=== PATIENT | male | born 1965 | race Hispanic/Latino ===

== ENCOUNTER 2018-11-02 13:40 | Inpatient (IN) | payer MEDICAID ==
--- NOTE | 2018-11-02 14:11 | C.PDOC ---
History Of Present Illness Patient is a 52 year old prescreened male who presents to the ED requesting detox from alcohol and xanax. 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 Patient also admits to cocaine and marijuana use and is currently complaining of symptoms of alcohol withdrawal. Denies any SI/HI, hallucinations, or other medical problems. Patient is requesting Librium. Time Seen by Provider: 11/02/18 14:11 Chief Complaint (Nursing): Substance Abuse History Per: Patient History/Exam Limitations: no limitations Suicide/Self Injury Attempted (Context): None Associated Symptoms: denies: Suicidal Thoughts, Suicidal Plan Recent travel outside of the [place]: No Additional History Per: Patient Past Medical History Reviewed: Historical Data, Nursing Documentation, Vital Signs Vital Signs: Last Vital Signs Temp 98.6 F 11/02/18 13:46 Pulse 86 11/02/18 13:46 Resp 18 11/02/18 13:46 BP 157/100 H 11/02/18 13:46 Pulse Ox 100 11/02/18 13:46 Primary Care Provider: Manuel Noriega - Medical History PMH: Crohn's Disease Denies: Diabetes, Hepatitis, HIV, HTN, Seizures, Sexually Transmitted Disease Surgical History: No Surg Hx - [facility] Procedures DRUG DETOXIFICATION (02/06/15) Family History: States: Unknown Family Hx - Social History Hx Tobacco Use: Yes Hx Alcohol Use: Yes Hx Substance Use: Yes (cocaine/marijuana/xanax) - Immunization History Hx Tetanus Toxoid Vaccination: No Hx Influenza Vaccination: Yes Hx Pneumococcal Vaccination: No Review Of Systems Except As Marked, All Systems Reviewed And Found Negative. Psych: Negative for: Suicidal ideation, Other (HI or hallucinations) Physical Exam - Physical Exam Appears: Non-toxic, No Acute Distress, Other (No tremors ) Skin: Warm, Dry Head: Atraumatic, Normacephalic Oral Mucosa: Moist Neck: Normal ROM, Supple Chest: Symmetrical, No Deformity Cardiovascular: Rhythm Regular, No Murmur Respiratory: Other (NARD) Gastrointestinal/Abdominal: Soft, No Tenderness Neurological/Psych: Oriented x3, Normal Speech, Normal Cognition, Other (No acute intox, calm, cooperative ) ED Course And Treatment - Laboratory Results Result Diagrams: 11/02/18 15:02 11/02/18 15:02 O2 Sat by Pulse Oximetry: 100 (on RA) Pulse Ox Interpretation: Normal Disposition Counseled Patient/Family Regarding: Studies Performed, Diagnosis - Disposition Disposition: HOSPITALIZED Disposition Time: 17:16 Condition: STABLE Forms: [facility] (Bulgarian) - Clinical Impression Clinical Impression: Alcohol abuse - Scribe Statement The provider has reviewed the documentation as recorded by the Silviaibmyke Cazares All medical record entries made by the Scribe were at my direction and personally dictated by me. I have reviewed the chart and agree that the record accurately reflects my personal performance of the history, physical exam, medical decision making, and the department course for this patient. I have also personally directed, reviewed, and agree with the discharge instructions and d isposition.
[2018-11-02 15:16] LABS: URINE BILIRUBIN NEGATIVE (NEGATIVE); URINE BLOOD NEGATIVE (NEGATIVE); URINE CLARITY Clear (Clear); URINE COLOR Colorless (YELLOW); URINE GLUCOSE (UA) NORMAL (Normal); URINE LEUKOCYTE ESTERASE NEG Leu/uL (Negative); URINE PROTEIN NEGATIVE (NEGATIVE); URINE UROBILINOGEN NORMAL mg/dL (0.2-1.0)
[2018-11-02 15:17] LABS: BASO # 0.1 K/uL (0.0-0.2); BASO % 0.7 % (0.0-2.0); EOS # 0.2 K/uL (0.0-0.7); EOS % 2.5 % (0.0-4.0); HEMOGLOBIN 16.5 g/dL (12.0-18.0); LYMPH # 2.3 K/uL (1.0-4.3); LYMPH % 26.8 % (20.0-40.0); MEAN CORPUSCULAR HEMOGLOBIN 32.5 pg (27.0-31.0); MEAN PLATELET VOLUME 8.2 fL (7.2-11.7); MONO # 0.8 K/uL (0.0-0.8); MONO % 9.4 % (0.0-10.0); NEUT # 5.3 K/uL (1.8-7.0); NEUT % 60.6 % (50.0-75.0); NRBC % 0.1 % (0.0-2.0); RBC 5.07 Mil/uL (4.40-5.90); RED CELL DISTRIBUTION WIDTH 13.1 % (11.5-14.5); WHITE BLOOD COUNT 8.7 K/uL (4.8-10.8)
[2018-11-02 15:20] LABS: MEAN CELL VOLUME 92.6 fL (80.0-94.0)
[2018-11-02 15:27] LABS: ALB/GLOB RATIO 1.2 (1.0-2.1); ALBUMIN 4.4 g/dL (3.5-5.0); ALT/SGPT 65 U/L (21-72); AST/SGOT 49 U/L (17-59); BLOOD UREA NITROGEN 9 mg/dL (9-20); CALCIUM 9.7 mg/dl (8.6-10.4); GFR NON-AFRICAN AMERICAN > 60
[2018-11-02 15:54] LABS: BARBITURATES, UR NEGATIVE (NEGATIVE); OPIATES, UR NEGATIVE (NEGATIVE); PHENCYCLIDINE, UR NEGATIVE (NEGATIVE)
[2018-11-02 16:25] LABS: BENZODIAZEPINES, UR POSITIVE (NEGATIVE)
--- NOTE | 2018-11-02 18:06 | PCM.BM ---
Treatment Plan Problems - Problems identified on initial assessmt knowledge deficit:substance use Assessment reference: NA Status: Active anxiety related to substance use Date Initiated: 11/02/18 Time Initiated: 18:05 Assessment reference: NA Status: Active knowledge deficit:alcohol use Date Initiated: 11/02/18 Time Initiated: 18:06 Assessment reference: NA Status: Active Treatment assets and liabiliti Patient Assests: adapts well, educated, ADL independent, cognitively intact Patient Liabilities: substance abuse - Milieu Protocol Maintain good personal hygiene: daily Encourage regular showers, daily Remind patient to perform daily oral care, daily Assist patient to perform ADL's Conduct patient checks and document Observation sheet: Q15 minutes Maintain personal safety: every shift Educate patient to report safety concerns to staff, every shift Monitor environment for contraband/sharps Medication safety: Monitor for expected outcome, potential side effects: every shift, Assess barriers to learning: every shift, Assess readiness for medication education: every shift
[2018-11-02] MEDS ORDERED: Aluminum Hydroxide/Magnesium Hydroxide Susp (30 mL) PO PRN (19:10)
[2018-11-02 21:04] VITALS: RESP 19
[2018-11-03] MEDS ORDERED: Multiple Vitamins Tab PO SCH (10:00)
[2018-11-03 12:51] VITALS: BP 105/68; PULSE 72; TEMP 97.4; O2SAT 96
--- NOTE | 2018-11-03 13:09 | PCM.PSYCH ---
Initial Psychiatric Evaluation - Initial Psychiatric Evaluation Type of Admission: Voluntary Legal Status: Capacity History of Present Illness and Precipitating Events: Patient is a 52 year-old, male, who lives with his girlfriend of 16 years and volunteers part-time as a bar host/hostess at [employer]. He has two children, one boy age 24 and one girl age 23. He presents to [facility] in order to detox from alcohol and benzodiazepines. He admits to drinking a case of beer daily, which typically consists of 24 7oz cans. He started drinking at the age of 20 but began drinking heavily 4 years ago. He stated that he came to detox because his girlfriend noticed that he needed a beer every morning to wake up. His last drink was on the day of admission, Nov 02 2018. Currently CIWA is <8. He also admits to taking 3-6mg of Xanax per day for the past 3 years. He stated that he was prescribed Xanax by his PCP to help manage anxiety, but approximately 3 months ago his UDS came back positive for cocaine and he was no longer able to obtain a prescription. In addition, he admits to using cocaine 3 days ago. He states that he has used cocaine off and on for the past 25 years and typically snorts up to one half gram. He also admits to smoking marijuana, about one joint per day for the past 30 years and has no intention of quitting because he feels that it helps him cope. Patient is a current every day smoker for 40 years, and smokes 1-1.5 packs per day. He denies any opioid use or the use of any other illicit substances except those mentioned above. He has been to multiple detox programs in the past, twice in [place], [place], and most recently at [facility] in 2014. He was last sober 4 years ago during detox and denies any substantial length of sobriety following this treatment. He has been arrested for DUI/DWI twice in his lifetime. He admits to a history of seizures, last episode in 2014. He denies any history of overdose. He is interested in detox in order to contribute more to his family. He feels anxious but denies any depressive symptoms or suicidal ideation. Past Psychiatric History: anxiety Family Psych History: none Past Medical History: brain aneurysm (4 yrs), colitis, COPD (emphysema), low back pain, hyperlipidemia, GERD, vertigo Past Surgical History: lumbar spine disc removal Current Medications: Active Medications Generic Name Dose Route Start Last Admin Trade Name Freq PRN Reason Stop Dose Admin Al Hydrox/Mg Hydrox/Simethicone 30 ml 11/02/18 19:10 Maalox 30 Ml PO TID PRN Indigestion / Heartburn Chlordiazepoxide 25 mg 11/03/18 09:00 Librium PO Q4H PRN Alcohol Withdrawal Chlordiazepoxide 25 mg 11/03/18 10:00 11/03/18 09:44 Librium PO 11/08/18 09:59 25 mg Q6H AKASH Administration Taper Clonidine HCl 0.1 mg 11/02/18 19:05 11/02/18 21:41 Catapres PO 0.1 mg Q4H PRN Administration Symptoms of alcohol withdrawl Folic Acid 1 mg 11/03/18 10:00 11/03/18 09:43 Folic Acid PO 1 mg DAILY AKASH Administration Gabapentin 400 mg 11/03/18 10:00 11/03/18 09:43 Neurontin PO 400 mg TID AKASH Administration Hydroxyzine HCl 50 mg 11/02/18 19:11 11/02/18 21:40 Atarax PO 50 mg Q6H PRN Administration Anxiety Multivitamins 1 tab 11/03/18 10:00 11/03/18 09:42 Hexavitamin PO 1 tab DAILY AKASH Administration Nicotine 1 patch 11/03/18 10:00 11/03/18 09:46 Nicoderm Cq TD 1 patch DAILY AKASH Administration Ondansetron HCl 4 mg 11/02/18 19:10 Zofran Tab PO Q8 PRN Nausea/Vomiting Thiamine HCl 100 mg 11/03/18 10:00 11/03/18 09:43 Vitamin B1 Tab PO 100 mg DAILY AKASH Administration Trazodone HCl 50 mg 11/02/18 19:05 11/02/18 21:40 Desyrel PO 50 mg HS PRN Administration Insomnia Past Psychiatric History - Past Psychiatric History Pertinent Medical Hx (Current Medical&Sleep Prob, Allergies): Allergies Allergy/AdvReac Type Severity Reaction Status Date / Time No Known Allergies Allergy Verified 02/06/15 14:58 Gabapentin [Neurontin] 400 mg PO TID #0 cap 02/11/15
== END 2018-11-03 13:40 | disposition left against medical advice (07) | DRG 749 ==
LOC: C.ER 13:40 → OBSVTOIN 17:17 → C.7D 17:17
PROVIDERS: ADMIT Psychiatry & Neurology Psychiatry; ATTEND Psychiatry & Neurology Psychiatry
PROC: HZ89ZZZ Medication Management for Substance Abuse Treatment, Other Replacement Medication (ICD-10-PCS; principal; 2018-11-02)
PROC: HZ2ZZZZ Detoxification Services for Substance Abuse Treatment (ICD-10-PCS; 2018-11-02)
DX: F10.230 Alcohol dependence with withdrawal, uncomplicated (principal); F14.90 Cocaine use, unspecified, uncomplicated; F12.90 Cannabis use, unspecified, uncomplicated; F17.200 Nicotine dependence, unspecified, uncomplicated; F41.9 Anxiety disorder, unspecified; K50.90 Crohn's disease, unspecified, without complications; K21.9 Gastro-esophageal reflux disease without esophagitis; J43.9 Emphysema, unspecified; E78.5 Hyperlipidemia, unspecified; Z86.79 Personal history of other diseases of the circulatory system